=== PATIENT | female | born 2000 | race Caucasian/White ===

== ENCOUNTER 2020-01-12 01:45 | Emergency (ER) | payer BC ==
[~2020-01-12] VITALS: Ht 152.4 cm; Wt 67.0 kg
[2020-01-12] MEDS ORDERED: CORTISPORIN OTI10 M2 AD (02:27)
[2020-01-12 02:41] VITALS: BP 108/74
== END 2020-01-12 02:41 | disposition home or self-care (01) | DRG 156 ==
LOC: ED 01:45
PROC: 09C4XZZ Extirpation of Matter from Left External Auditory Canal, External Approach (ICD-10-PCS; principal; 2020-01-12)
DX: T16.2XXA Foreign body in left ear, initial encounter (principal); X58.XXXA Exposure to other specified factors, initial encounter

== ENCOUNTER 2020-04-03 11:52 | Emergency (ER) | payer OTHER ==
[~2020-04-03] VITALS: Ht 152.4 cm; Wt 65.9 kg
[~2020-04-03 11:52] MED LIST: CORTISPORIN OTI10 M2 AD
[2020-04-03 12:37] LABS: URINE BILIRUBIN - DIPSTICK NEGATIVE (NEGATIVE); URINE BLOOD DIPSTICK NEGATIVE (NEGATIVE); URINE COLOR YELLOW; URINE GLUCOSE - DIPSTICK NEGATIVE (NEGATIVE); URINE KETONE NEGATIVE (NEGATIVE); URINE LEUK ESTERASE NEGATIVE (NEGATIVE); URINE NITRITE - DIPSTICK NEGATIVE (Negative); URINE PROTEIN - DIPSTICK NEGATIVE (NEG-TRACE); URINE SPECIFIC GRAVITY >=1.030; URINE UROBILINOGEN - DIPSTICK 0.2 E.U./dL (0.2)
[2020-04-03 12:40] LABS: HCG SERUM/URINE (NEG/POS) NEGATIVE (NEGATIVE)
[2020-04-03 12:49] LABS: HEMATOCRIT 36.9 % (37.0-47.0); HEMOGLOBIN 12.2 g/dl (12.0-16.0); IMMATURE GRANULOCYTES 0.2 % (0.0-5.0); MEAN CELL VOLUME 88.5 fL CALC (80.0-100.0); MEAN CORPUSCULAR HGB 29.3 pG CALC (26.0-32.0); MEAN CORPUSCULAR HGB CONC 33.1 g/dL CAL (32.0-36.0); NEUT# 5.96 thou/uL (2.00-7.15); RED BLOOD COUNT 4.17 mill/uL (4.20-5.60); RED CELL DISTRI WIDTH 11.5 % (11.5-15.5)
[2020-04-03 13:05] LABS: ALBUMIN 4.3 g/dL (3.2-5.0); ALKALINE PHOSPHATASE 78 u/l (38-126); ANION GAP 13 (6-22 (CALC)); BILIRUBIN, TOTAL 0.6 mg/dL (0.0-1.4); BUN 13 mg/dL (8-21); BUN/CREATININE RATIO 22 (12-20 (CALC)); CARBON DIOXIDE 23 mmol/l (22-30); CHLORIDE 107 mmol/l (95-108); CREATININE 0.6 mg/dL (0.5-1.0); GFR > 60 ML/MIN (>=60 (CALC)); GFR FOR AFR.AMER. > 60 ML/MIN (>=60 (CALC)); LIPASE 91 u/l (23-300); POTASSIUM 3.9 mmol/l (3.5-5.1); SGOT/AST 26 u/l (14-36); SODIUM 139 mmol/l (137-146); TOTAL PROTEIN 7.6 g/dL (6.3-8.2)
[2020-04-03 14:33] VITALS: BP 99/61
== END 2020-04-03 14:35 | disposition home or self-care (01) ==
LOC: ED 11:52
DX: R07.89 Other chest pain (principal); Z20.822 Contact with and (suspected) exposure to COVID-19

== ENCOUNTER 2020-06-18 19:44 | Emergency (ER) | payer OTHER ==
[~2020-06-18] VITALS: Ht 152.4 cm; Wt 68.0 kg
[2020-06-18 21:03] LABS: URINE BILIRUBIN - DIPSTICK NEGATIVE (NEGATIVE); URINE BLOOD DIPSTICK NEGATIVE (NEGATIVE); URINE COLOR YELLOW; URINE GLUCOSE - DIPSTICK NEGATIVE (NEGATIVE); URINE KETONE NEGATIVE (NEGATIVE); URINE LEUK ESTERASE TRACE (NEGATIVE); URINE PROTEIN - DIPSTICK NEGATIVE (NEG-TRACE); URINE SPECIFIC GRAVITY >=1.030; URINE UROBILINOGEN - DIPSTICK 0.2 E.U./dL (0.2)
[2020-06-18 21:06] LABS: URINE NITRITE - DIPSTICK NEGATIVE (Negative)
[2020-06-18 21:10] LABS: HEMATOCRIT 33.5 % (37.0-47.0); HEMOGLOBIN 11.3 g/dl (12.0-16.0); IMMATURE GRANULOCYTES 0.1 % (0.0-5.0); MEAN CORPUSCULAR HGB 29.4 pG CALC (26.0-32.0); MEAN CORPUSCULAR HGB CONC 33.7 g/dL CAL (32.0-36.0); NEUT# 6.54 thou/uL (2.00-7.15); RED BLOOD COUNT 3.85 mill/uL (4.20-5.60); RED CELL DISTRI WIDTH 12.3 % (11.5-15.5)
[2020-06-18 21:22] LABS: ANION GAP 12 (6-22 (CALC)); BUN 11 mg/dL (8-21); BUN/CREATININE RATIO 19 (12-20 (CALC)); CARBON DIOXIDE 22 mmol/l (22-30); CHLORIDE 104 mmol/l (95-108); CREATININE 0.6 mg/dL (0.5-1.0); GFR > 60 ML/MIN (>=60 (CALC)); GFR FOR AFR.AMER. > 60 ML/MIN (>=60 (CALC)); POTASSIUM 3.7 mmol/l (3.5-5.1); SODIUM 134 mmol/l (137-146)
[2020-06-18 21:38] LABS: BETA-HCG, QUANT(RESULT NUMBER) 4970 mIU/mL
[2020-06-19] MEDS ORDERED: MACRODANTIN100 MG PO (00:50)
[2020-06-19] MEDS ORDERED: PYRIDIUM200 MG PO (00:50)
[2020-06-19 01:00] VITALS: BP 109/65
== END 2020-06-19 01:00 | disposition home or self-care (01) ==
LOC: ED 19:44
PROVIDERS: Emergency Medicine
DX: O23.21 Infections of urethra in pregnancy, first trimester (principal); Z3A.00 Weeks of gestation of pregnancy not specified

== ENCOUNTER 2020-07-13 14:48 | Emergency (ER) | payer OTHER ==
[~2020-07-13 14:48] MED LIST changes: +MACRODANTIN100 MG PO; +PYRIDIUM200 MG PO
[2020-07-13 16:18] LABS: HEMATOCRIT 37.1 % (37.0-47.0); HEMOGLOBIN 12.1 g/dl (12.0-16.0); IMMATURE GRANULOCYTES 0.3 % (0.0-5.0); MEAN CELL VOLUME 88.3 fL CALC (80.0-100.0); MEAN CORPUSCULAR HGB 28.8 pG CALC (26.0-32.0); MEAN CORPUSCULAR HGB CONC 32.6 g/dL CAL (32.0-36.0); NEUT# 7.61 thou/uL (2.00-7.15); RED BLOOD COUNT 4.2 mill/uL (4.20-5.60); RED CELL DISTRI WIDTH 12.1 % (11.5-15.5)
[2020-07-13 16:38] LABS: ALBUMIN 4.1 g/dL (3.2-5.0); ALKALINE PHOSPHATASE 60 u/l (38-126); ANION GAP 13 (6-22 (CALC)); BILIRUBIN, TOTAL 0.7 mg/dL (0.0-1.4); BUN 6 mg/dL (8-21); BUN/CREATININE RATIO 14 (12-20 (CALC)); CARBON DIOXIDE 19 mmol/l (22-30); CHLORIDE 103 mmol/l (95-108); CREATININE 0.4 mg/dL (0.5-1.0); GFR > 60 ML/MIN (>=60 (CALC)); GFR FOR AFR.AMER. > 60 ML/MIN (>=60 (CALC)); POTASSIUM 3.6 mmol/l (3.5-5.1); SGOT/AST 30 u/l (14-36); SODIUM 132 mmol/l (137-146); TOTAL PROTEIN 7.8 g/dL (6.3-8.2)
[2020-07-13 18:59] VITALS: BP 110/72
== END 2020-07-13 18:59 | disposition home or self-care (01) ==
LOC: ED 14:48
PROVIDERS: Emergency Medicine
DX: O20.0 Threatened abortion (principal); Z3A.09 9 weeks gestation of pregnancy

== ENCOUNTER 2021-03-17 19:42 | Emergency (ER) | payer OTHER ==
[~2021-03-17] VITALS: Ht 172.7 cm; Wt 65.0 kg
[2021-03-17 21:11] LABS: HEMATOCRIT 35.1 % (37.0-47.0); HEMOGLOBIN 11.6 g/dl (12.0-16.0); IMMATURE GRANULOCYTES 0.1 % (0.0-5.0); MEAN CORPUSCULAR HGB 28.9 pG CALC (26.0-32.0); NEUT# 4.38 thou/uL (2.00-7.15); RED BLOOD COUNT 4.01 mill/uL (4.20-5.60); RED CELL DISTRI WIDTH 12.1 % (11.5-15.5)
[2021-03-17 21:22] LABS: MEAN CELL VOLUME 87.5 fL CALC (80.0-100.0)
[2021-03-17 21:25] LABS: D-DIMER 0.4 mg/L (0.19-0.60)
[2021-03-17 21:30] LABS: ALBUMIN 3.7 g/dL (3.2-5.0); ANION GAP 15 (6-22 (CALC)); BILIRUBIN, TOTAL 0.5 mg/dL (0.0-1.4); BUN 22 mg/dL (7-17); BUN/CREATININE RATIO 20 (12-20 (CALC)); CARBON DIOXIDE 21 mmol/l (22-30); CHLORIDE 104 mmol/l (95-108); CREATININE 1.1 mg/dL (0.5-1.0); GFR > 60 ML/MIN (>=60 (CALC)); GFR FOR AFR.AMER. > 60 ML/MIN (>=60 (CALC)); POTASSIUM 3.8 mmol/l (3.5-5.1); SGOT/AST 42 u/l (14-36); SODIUM 137 mmol/l (137-146); TOTAL PROTEIN 7.1 g/dL (6.3-8.2)
[2021-03-17 21:32] LABS: INTERNATIONAL NORMALIZED RATIO 0.9 RATIO (0.7-1.3); PROTHROMBIN TIME 9.9 SECONDS (9.0-12.5)
[2021-03-17 21:33] LABS: ALKALINE PHOSPHATASE 91 u/l (38-126)
[2021-03-17 21:42] LABS: MYOGLOBIN 9 ng/mL (0 - 62)
[2021-03-17 22:31] LABS: URINE BILIRUBIN - DIPSTICK NEGATIVE (NEGATIVE); URINE BLOOD DIPSTICK MODERATE (NEGATIVE); URINE COLOR YELLOW; URINE GLUCOSE - DIPSTICK NEGATIVE (NEGATIVE); URINE KETONE NEGATIVE (NEGATIVE); URINE PH 6.5 (4.5-8.0); URINE PROTEIN - DIPSTICK NEGATIVE (NEG-TRACE); URINE UROBILINOGEN - DIPSTICK 0.2 E.U./dL (0.2)
[2021-03-17 22:33] LABS: URINE LEUK ESTERASE MODERATE (NEGATIVE); URINE NITRITE - DIPSTICK NEGATIVE (Negative)
[2021-03-17 22:45] LABS: URINE SQUAMOUS EPITHELIAL CELL MODERATE EPI/hpf (0-FEW)
[2021-03-17] MEDS ORDERED: PRENATA3 PO (23:11)
[2021-03-17] MEDS ORDERED: FE SULFATE XX (23:12)
[2021-03-17 23:18] VITALS: BP 103/63
== END 2021-03-17 23:26 | disposition home or self-care (01) ==
LOC: ED 19:42
PROVIDERS: Family Medicine
DX: R00.2 Palpitations (principal)

== ENCOUNTER 2022-08-09 11:16 | Emergency (ER) | payer OTHER ==
[~2022-08-09] VITALS: Ht 172.7 cm; Wt 63.2 kg
[~2022-08-09 11:16] MED LIST changes: +FE SULFATE XX; +PRENATA3 PO
[2022-08-09] MEDS ORDERED: ROBAFEN MU200 MG/10 PO (13:12)
[2022-08-09] MEDS ORDERED: ALLERGY RELIEF 25 MG PO (13:12)
[2022-08-09 13:33] VITALS: BP 124/78
== END 2022-08-09 13:40 | disposition home or self-care (01) | DRG 866 ==
LOC: ED 11:16
DX: B34.9 Viral infection, unspecified (principal); Z20.822 Contact with and (suspected) exposure to COVID-19

== ENCOUNTER 2024-03-29 22:41 | Emergency (ER) | payer OTHER ==
[~2024-03-29] VITALS: Ht 152.4 cm; Wt 63.0 kg
[~2024-03-29 22:41] MED LIST changes: +ALLERGY RELIEF 25 MG PO; +ROBAFEN MU200 MG/10 PO
[2024-03-29 23:45] VITALS: BP 132/73
[2024-03-29] MEDS ORDERED: BENZONATATE 200 MG/CAP PO ONE (23:55)
[2024-03-29] MEDS ORDERED: DEXAMETHASONE 2 MG/TAB TAB PO ONE (23:55)
[2024-03-30] VITALS: BP 108/74
[2024-03-30] MEDS ORDERED: STELARA (00:07)
[2024-03-30] MEDS ORDERED: AZITHROMYCIN500 MG PO (02:02)
[2024-03-30] MEDS ORDERED: DECADRON4 MG PO (02:02)
[2024-03-30] MEDS ORDERED: BENZONATATE200 MG PO (02:02)
[2024-03-30 02:07] VITALS: BP 108/74
== END 2024-03-30 02:11 | disposition home or self-care (01) | DRG 203 ==
LOC: ED 22:41
DX: J40 Bronchitis, not specified as acute or chronic (principal)

== ENCOUNTER 2024-05-28 10:29 | Emergency (ER) | payer OTHER ==
[~2024-05-28] VITALS: Ht 152.4 cm; Wt 64.0 kg
[~2024-05-28 10:29] MED LIST changes: +AZITHROMYCIN500 MG PO; +BENZONATATE200 MG PO; +DECADRON4 MG PO; +STELARA
[2024-05-28 10:41] VITALS: BP 127/78
[2024-05-28 10:45] VITALS: BP 117/78
[2024-05-28] MEDS ORDERED: Diph, Acellular Pertussis, Tet 0.5 ML/VIAL (Tdap) SDV IM ONE (10:45)
[2024-05-28 11:00] VITALS: BP 102/71
[2024-05-28 11:15] VITALS: BP 110/72
[2024-05-28] MEDS ORDERED: CEPHALEXIN500 MG PO (11:17)
[2024-05-28 11:25] VITALS: BP 110/72
== END 2024-05-28 11:30 | disposition home or self-care (01) | DRG 563 ==
LOC: ED 10:29
PROC: 2W3KX1Z Immobilization of Left Finger using Splint (ICD-10-PCS; principal; 2024-05-28)
DX: S62.635A Displaced fracture of distal phalanx of left ring finger, initial encounter for closed fracture (principal); S61.305A Unspecified open wound of left ring finger with damage to nail, initial encounter; W23.0XXA Caught, crushed, jammed, or pinched between moving objects, initial encounter
CPT/HCPCS: 90715